=== PATIENT | female | born 1940 | race Caucasian/White ===

== ENCOUNTER 2017-06-05 22:10 | Emergency (ER) | payer MEDICARE, OTHER ==
[~2017-06-05] VITALS: Ht 154.9 cm; Wt 56.7 kg
[~2017-06-05 22:10] MED LIST: HYDROXYCHLOROQUINE; TOPROL XL100 MG PO; [UNRECOGNIZED DRUG - OTHER] PO
[2017-06-05 22:27] VITALS: BP 110/72
[2017-06-05 23:50] VITALS: BP 112/68
[2017-06-06] VITALS: BP 112/68
--- NOTE | 2017-06-06 00:16 | Emergency Room Report ---
History of Present Illness General Chief Complaint: Pain Source: Patient Present Illness HPI Patient presents with complaints of right ankle pain Patient reports missing a step and twisting her ankle at approximately 2:30 this afternoon Pain is 5/10 Patient had increased difficulty in relating Denies any knee pain denies any loss of consciousness Describes a fairly purely mechanical fall in nature Patient also had some mild discomfort to the top of the foot Allergies: Coded Allergies: No Known Allergies (Unverified , 06/30/12) Patient History Past Medical History: see triage record Pertinent Family History: none Last Menstrual Period: none Now: No : 1 Para: 1 Reviewed Nursing Documentation: PMH: Agreed, PSxH: Agreed Nursing Documentation-PMH Hx 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 Review of Systems All Other Systems: negative except mentioned in HPI Physical Exam Vital Signs Date Time Temp Pulse Resp B/P (MAP) Pulse Ox O2 Delivery O2 Flow Rate FiO2 06/05/17 22:16 97.5 74 18 110/72 97 Room Air Sp02 EP Interpretation: reviewed, normal General Appearance: well appearing, no apparent distress Head: normocephalic, atraumatic Eyes: bilateral eye PERRL, bilateral eye EOMI ENT: normal pharynx Neck: supple Respiratory: lungs clear Cardiovascular #1: regular rate, rhythm Musculoskeletal: swelling - Right ankle, tender on palpation of the lateral ankle, also uncomfortable on palpation of the dorsal foot, neurovascularly intact, pain with eversion Neurologic: alert, oriented x3, responsive Skin: no rash Lymphatic: no adenopathy Procedures Splinting Splinting : Consent: Verbal Location: right ankle Pre-Made Type: velcro Splint: sugar-tong Pre-Proc Neuro Vasc Exam: normal Post-Proc Neuro Vasc Exam: normal Patient Tolerated: Well Complications: None Medical Decision Making Diagnostic Impression: Primary Impression: ankle sprain ER Course Given the patient's presentation imaging study was obtained No obvious signs of acute fracture Given the swelling however patient did have a splint applied was given crutches for nonweightbearing And will have close outpatient follow Other X-Ray Diagnostic Results Other X-Ray Diagnostic Results #1: X-Ray ordered: right ankle # of Views/Limited Vs Complete: 3 View Indication: Pain EP Interpretation: Yes Interpretation: no dislocation, no fractures, other - soft tissue swelling Impression: Other - soft tissue swelling Electronically Signed by: Kyle Martinez DO Other X-Ray Diagnostic Results #2: X-Ray ordered: right foot # of Views/Limited Vs Complete: 3 View Indication: Pain EP Interpretation: Yes Interpretation: no dislocation, no soft tissue swelling, no fractures Impression: No acute disease Electronically Signed by: Kyle Martinez DO Last Vital Signs Date Time Temp Pulse Resp B/P (MAP) Pulse Ox O2 Delivery O2 Flow Rate FiO2 06/06/17 00:00 97.5 74 20 112/68 98 Room Air Status: improved Disposition: HOME, SELF-CARE Condition: Improved Referrals: NON PHYSICIAN (PCP) Patient Instructions: Ankle Sprain, [id number] Additional Instructions: Patient is provided with the discharge instructions notified to follow up with primary doctor in the next 2-3 days otherwise return to the er with any worsening symptoms. Please note that this report is being documented using [email or web address] technology. This can lead to erroneous entry secondary to incorrect interpretation by the dictating instrument. KYLE MARTINEZ D.O. Jun 06, 2017 00:15
--- NOTE | 2017-06-06 09:54 | Diagnostic Imaging Report ---
Indication: PAIN Technique: 3 views right foot Comparison: none Findings: Is a large bunion. There is hallux valgus and degenerative change of the first metatarsal phalangeal joint. No evidence of acute fracture. No dislocations. 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 The bones are demineralized. The remaining joint spaces are preserved. Impression: No definite acute bony trauma Degenerative changes as described Osteoporotic change This agrees with the preliminary interpretation provided overnight by [facility].
--- NOTE | 2017-06-06 09:55 | Diagnostic Imaging Report ---
Indication: PAIN Technique: 3 or 4 views of the right ankle Comparison: none Findings: Bones are demineralized. No acute fractures. No dislocations. Joint spaces are preserved. Impression: No acute bony trauma Osteoporotic change This agrees with the preliminary interpretation provided overnight by [facility].
== END 2017-06-06 | disposition home or self-care (01) ==
LOC: EMR 22:50
DX: S93.401A Sprain of unspecified ligament of right ankle, initial encounter (principal); X50.1XXA Overexertion from prolonged static or awkward postures, initial encounter; Y92.89 Other specified places as the place of occurrence of the external cause; M21.611 Bunion of right foot; M20.11 Hallux valgus (acquired), right foot; Z86.79 Personal history of other diseases of the circulatory system
CPT/HCPCS: 29125; 29515; 99284